=== PATIENT | female | born 1970 | race Caucasian/White ===

== ENCOUNTER → 2017-06-28 | Outpatient (CLI) | payer BC, OTHER ==
[~2017-06-28] MED LIST: IOPAMIDOL (ISOVUE-300) 100 ML BTL ONE
== END ==
LOC: FIMAGING 10:48
PROVIDERS: ATTEND Internal Medicine
DX: R19.8 Other specified symptoms and signs involving the digestive system and abdomen (principal); K59.00 Constipation, unspecified; I31.3 Pericardial effusion (noninflammatory)
CPT/HCPCS: Q9967

== ENCOUNTER 2018-01-31 10:30 | Emergency (ER) | payer OTHER ==
--- NOTE | 2018-01-31 10:56 | EDPHY ---
H & P Stated Complaint: Fell, hit back and head, feels dizzy has headache. Time Seen by Provider: 01/31/18 10:45 HPI/ROS: HPI: This is a 47-year-old female who presents with Chief Complaint: Fell, hit back and head, feels dizzy has headache. Location: Tailbone, head Quality: Injury Duration: 1 hr prior to arrival Signs and Symptoms: no fever, no nausea, no vomiting, no diarrhea, no urinary symptoms, no chest pain, no shortness of breath, no wheezing, no cough, no sore throat, no neck stiffness, no joint pain, no swollen glands, no ear pain, no rash Timing: Acute Severity: Moderate Context: Patient reports that [place] the [place] park when a dog came up underneath her and her legs came out from underneath her. She reports that she initially fell on her tailbone and then hit her right forearm and then the back of her head. Denies LOC, nausea, vomiting, amnesia. Patient reports that she has since developed dizziness and a headache that is all encompassing but not worst of her life or thunderclap symptoms. She was ambulatory at the scene. No prior history of concussions. She denies any radiation, weakness, decreased range of motion. She was able to urinate without any difficulty. She complains of tailbone pain that is 6/10 and nonradiating in nature. Patient is right-hand dominant. Modifying Factors: None Comment: ROS: A comprehensive 10 system review of systems is otherwise negative aside from elements mentioned in the history of present illness. MEDICAL/SURGICAL/SOCIAL HISTORY: Medical/surgical history: DEPRESSION, RT KNEE, LT SHOULDER, Social history: Never smoked. Family history noncontributory. CONSTITUTIONAL: Polite and cooperative adult white female, awake and alert, no obvious distress HEENT: Atraumatic and normocephalic. NECK: supple, no midline tenderness, flexion 45 degrees, extension 45 degrees, right and left lateral flexion 45 degrees. No meningismus. Cardiovascular: Normal S1/S2, regular rate, regular rhythm, without murmur rub or gallop. PULMONARY/CHEST: Symmetrical and nontender. no crepitus. Clear to auscultation bilaterally. Good air movement. No accessory muscle usage. ABDOMEN: Soft, nondistended, nontender, no ecchymosis. PELVIC: no pain with rocking; bilateral hips flexion 125 degrees, extension 30 degrees, with no pain internal rotation and no pain external rotation. BACK: No midline tenderness, no paraspinous spasm, deep tendon reflexes 2/2, no pain with straight leg raise, No foot drop. Achilles reflexes are equal bilaterally. Able to walk on heels and toes without difficulty. EXTREMITIES: 2/2 pulses, strength 5/5, right ELBOW: Ecchymosis noted on right forearm; Full extension to 180, flexion to 150, no tenderness over medial epicondyle, no tenderness over lateral epicondyle, no effusion. DIP/PIP/MCP flexion/extension intact with good light touch sensation. no deformities, no clubbing, no cyanosis or edema. NEUROLOGICAL: no focal neuro deficits. GCS 15. Light touch sensation intact. SKIN: Warm and dry, no erythema. no rash. Good capillary refill. Source: Patient Exam Limitations: No limitations - Personal History Current Tetanus Diphtheria and Acellular Pertussis (TDAP): Unsure - Medical/Surgical History Hx Asthma: No Hx Chronic Respiratory Disease: No Hx Diabetes: No Hx Cardiac Disease: No Hx Renal Disease: No Hx Cirrhosis: No Hx Alcoholism: No Hx HIV/AIDS: No Hx Splenectomy or Spleen Trauma: No Other PMH: DEPRESSION, RT KNEE, LT SHOULDER, - Social History Smoking Status: Never smoked Constitutional: Initial Vital Signs Temperature (C) 36.6 C 01/31/18 10:32 Heart Rate 62 01/31/18 10:32 Respiratory Rate 16 01/31/18 10:32 Blood Pressure 119/78 01/31/18 10:32 O2 Sat (%) 96 01/31/18 10:32 O2 Delivery Mode Room Air Allergies/Adverse Reactions: No Known Allergies Allergy (Verified 05/22/15 10:29) Home Medications: Medication Instructions Recorded Lexapro 11/24/13 Promethazine HCl 25 mg PO Q6 PRN #10 tablet 01/31/18 Medical Decision Making - Diagnostics Imaging Results: Imaging Impressions Sacrum and Coccyx X-Ray 01/31/18 11:05 Impression: 1. No acute fracture of the sacrum or coccyx identified. ED Course/Re-evaluation: Vital signs reviewed and stable upon arrival. No systemic signs. Based on nexus protocol and no LOC, no neurological deficits; head CT imaging not indicated Based on nexus protocol; cervical CT imaging not indicated IV access and medications of 1 L normal saline, IV promethazine 12.5 mg, IV Toradol 30 mg, IV Decadron 10 mg given Sacral coccyx x-ray ordered my read via PAC shows no acute fracture. 1208: Reassessed patient. Sleeping soundly and reports relief of headache and dizziness. at bedside. I answered all the questions at bedside. No signs of neurovascular compromise/tenting of skin/compartment syndrome/ extremities and joints examined above and below area of concern and are neurovascularly intact. This patient was seen under the supervision of my secondary supervising physician. I evaluated care for this patient independently. Discussed this patient with Dr. Sprague who did not see the patient. Differential Diagnosis: Head injury including but not limited to concussion, skull fracture, intraparenchymal contusion, subarachnoid, subdural and epidural hematoma. - Data Points Medications Given: Discontinued Medications Dexamethasone (Decadron Injection) 10 mg IVP EDNOW ONE Stop: 01/31/18 11:06 Last Admin: 01/31/18 11:27 Dose: 10 mg Sodium Chloride (Ns) 1,000 mls @ 0 mls/hr IV ONCE ONE; Wide Open PRN Reason: Protocol Stop: 01/31/18 11:06 Last Admin: 01/31/18 11:26 Dose: 1,000 mls Ketorolac Tromethamine (Toradol) 30 mg IVP EDNOW ONE Stop: 01/31/18 11:06 Last Admin: 01/31/18 11:27 Dose: 30 mg Promethazine HCl (Phenergan) 12.5 mg IVP EDNOW ONE Stop: 01/31/18 11:06 Last Admin: 01/31/18 11:27 Dose: 12.5 mg Departure - Departure Disposition: Home, Routine, Self-Care Clinical Impression: Contusion of right forearm, initial encounter Head injury, closed, with concussion Qualifiers: Encounter type: initial encounter Loss of consciousness presence/duration: without LOC Qualified Code(s): S06.0X0A - Concussion without loss of consciousness, initial encounter Tailbone injury Qualifiers: Encounter type: initial encounter Qualified Code(s): S39.92XA - Unspecified injury of lower back, initial encounter Condition: Good Instructions: Coccyx Injury (ED), Concussion (ED), Head Injury (ED), Contusion in Adults (ED) Additional Instructions: You sustained a closed head injury and mild concussion and it is recommended that you observe concussion precautions. Please do not participate in any contact sports or moderate and strenuous activity until all symptoms have resolved or cleared by PCP/Concussion Clinic. Take Tylenol 650 mg every 4 hours and/or Ibuprofen 600 mg every 8 hours with food as needed for pain/headache. Consume a minimum of 8-10 glasses of water or electrolyte fluid replacement drinks that include Gatorade, Powerade, Pedialyte. You are to be closely monitored and observed for the 12 hr following initial injury time. Take promethazine every 6 hr as needed for nausea, vomiting. Please follow-up with primary care provider in 5-7 days. If symptoms last longer than 1 week, please follow-up with Dr. Rand in the concussion Clinic. Return to the ER immediately if you have progressive headaches, neurologic deficits, gait abnormality, visual disturbance, slurred speech, or any other symptom that concerns you. The x-rays obtained in the emergency department today demonstrate no evidence of an obvious fracture. Sometimes fractures are not obvious on the initial set of x-rays performed in the ED. For this reason, you should have repeat x-rays performed in 7-10 days if you are having any pain exclude the possibility of an occult fracture. Referrals: Sylvie Linder MD [Primary Care Provider] - As per Instructions Sienna Rand MD [Medical Doctor] - As per Instructions Prescriptions: Promethazine HCl 25 mg PO Q6 PRN #10 tablet PRN Reason: Nausea/Vomiting, Use 1st
[2018-01-31] MEDS ORDERED: KETOROLAC 30 MG/1 ML SDV IVP ONE (11:05)
[2018-01-31] MEDS ORDERED: DEXAMETHASONE 10 MG/ML VIAL IVP ONE (11:05)
[2018-01-31] MEDS ORDERED: NS 1,000 ML IV ONE (11:05)
[2018-01-31] MEDS ORDERED: PROMETHAZINE HCL 25 MG/ML INJ IVP ONE (11:05)
[2018-01-31] MEDS ORDERED: DEXAMETHASONE 4 MG/ML VIAL ONE (11:12)
[2018-01-31 12:45] VITALS: BP 107/68
== END 2018-01-31 12:41 | disposition home or self-care (01) ==
DX: S06.0X0A Concussion without loss of consciousness, initial encounter (principal); S50.11XA Contusion of right forearm, initial encounter; S39.92XA Unspecified injury of lower back, initial encounter; F32.9 Major depressive disorder, single episode, unspecified; W54.8XXA Other contact with dog, initial encounter; Y92.830 Public park as the place of occurrence of the external cause; Y93.K9 Activity, other involving animal care; Y99.9 Unspecified external cause status
CPT/HCPCS: 96374; J1100; J1885; J2550

== ENCOUNTER → 2018-02-24 | Outpatient (CLI) | payer OTHER | LOC: FIMAGING 11:04 | PROVIDERS: ATTEND Internal Medicine | DX: Z12.31 Encounter for screening mammogram for malignant neoplasm of breast (principal) ==

== ENCOUNTER → 2018-03-07 | Outpatient (CLI) | payer OTHER | LOC: BMCIMAGING 08:54 | PROVIDERS: ATTEND Obstetrics & Gynecology | DX: N83.201 Unspecified ovarian cyst, right side (principal) ==